=== PATIENT | male | born 1995 | race American Indian/Alaskan Native ===

== ENCOUNTER 2021-06-29 18:34 | Emergency (ER) | payer SELFPAY ==
[2021-06-29 18:42] VITALS: BP 121/66
[2021-06-29] MEDS ORDERED: IBUPROFEN 800 MG TAB PO ONE (21:22)
[2021-06-29] MEDS ORDERED: predniSONE 20 MG TAB PO ONE (21:22)
--- NOTE | 2021-06-29 21:36 | Emergency Department Report ---
ED Chest Pain HPI - General Chief Complaint: Chest Pain Stated Complaint: CHEST PAINS PUI?: No Time Seen by Provider: 06/29/21 21:21 Source: patient Mode of arrival: Ambulatory Limitations: No Limitations - History of Present Illness Initial Comments: Patient 26-year-old male who presents for anterior chest pain rated at 4/10 x3 days. Patient states symptoms are exacerbated by inspiration and movement. Patient described pain as pressure. Patient denies asthma bronchitis there is no seasonal allergies has been no cough no fevers no chills. Denies nausea or vomiting. There is no lightheadedness or dizziness. Patient works as armed security officer. Denies fall injury or trauma. Denies other medical history. Denies substance, smoking or EtOH. MD Complaint: chest pain Severity scale (0 -10): 2 - Related Data Previous Rx's Medication Instructions Recorded Last Taken Type Ibuprofen [Motrin 800 MG tab] 800 mg PO Q8HR PRN #30 tablet 06/29/21 Unknown Rx Allergies Allergy/AdvReac Type Severity Reaction Status Date / Time No Known Allergies Allergy Unverified 06/29/21 18:38 Heart Score - HEART Score History: Slightly suspicious EKG: Normal Age: < 45 Risk factors: No known risk factors Troponin: < normal limit HEART Score: 0 - EKG Read Time Time EKG Completed: 18:50 EKG Read Time: 18:56 ED Review of Systems ROS: Stated complaint: CHEST PAINS Other details as noted in HPI Constitutional: denies: chills, fever Eyes: as per HPI ENT: as per HPI Respiratory: denies: cough, shortness of breath, wheezing Cardiovascular: chest pain. denies: palpitations Endocrine: no symptoms reported Gastrointestinal: denies: abdominal pain, nausea, vomiting, diarrhea Genitourinary: denies: urgency, dysuria Musculoskeletal: denies: back pain, joint swelling, arthralgia Skin: denies: rash, lesions Neurological: headache. denies: weakness, numbness, paresthesias, confusion, vertigo Psychiatric: denies: anxiety, depression Hematological/Lymphatic: denies: easy bleeding, easy bruising ED Past Medical Hx - Medications Home Medications: Home Medications Medication Instructions Recorded Confirmed Last Taken Type Ibuprofen [Motrin 800 MG tab] 800 mg PO Q8HR PRN #30 tablet 06/29/21 Unknown Rx ED Physical Exam - General Limitations: No Limitations General appearance: alert, in no apparent distress - Head Head exam: Present: normocephalic, normal inspection - Eye Eye exam: Present: PERRL, EOMI Pupils: Present: normal accommodation - ENT ENT exam: Present: mucous membranes moist - Neck Neck exam: Present: normal inspection, full ROM. Absent: tenderness, lymphadenopathy, thyromegaly - Respiratory Respiratory exam: Present: normal lung sounds bilaterally, chest wall tenderness (Anterior chest wall). Absent: respiratory distress, wheezes, rales, rhonchi, stridor - Cardiovascular Cardiovascular Exam: Present: regular rate, normal rhythm, normal heart sounds. Absent: systolic murmur, diastolic murmur, rubs, gallop - GI/Abdominal GI/Abdominal exam: Present: soft, normal bowel sounds. Absent: distended, tenderness, guarding, rebound, rigid, bruit, hernia - Rectal Rectal exam: Present: deferred - Extremities Exam Extremities exam: Present: normal inspection, full ROM, normal capillary refill. Absent: tenderness, pedal edema, calf tenderness - Back Exam Back exam: Present: normal inspection, full ROM. Absent: CVA tenderness (R), CVA tenderness (L) - Neurological Exam Neurological exam: Present: alert, oriented X3, CN II-XII intact, normal gait - Expanded Neurological Exam Expanded Patient oriented to: Present: person, place, time Speech: Present: fluid speech Motor strength exam: RUE: 5, LUE: 5, RLE: 5, LLE: 5 Best Eye Response ([place]): (4) open spontaneously Best Motor Response ([place]): (6) obeys commands Best Verbal Response ([place]): (5) oriented [place] Total: 15 - Psychiatric Psychiatric exam: Present: normal affect, normal mood - Skin Skin exam: Present: warm, dry, intact, normal color. Absent: rash ED Course Vital Signs 06/29/21 18:40 Temperature 98.2 F Pulse Rate 68 Respiratory 18 Rate Blood Pressure 121/66 [Right] O2 Sat by Pulse 99 Oximetry DAKOTA score - Dakota Score Age > 65: (0) No Aspirin use within the Past 7 Days: (0) No 3 or more CAD Risk Factors: (0) No 2 or more Angina events in past 24 hrs: (0) No Known CAD with more than 50% Stenosis: (0) No Elevated Cardiac Markers: (0) No ST Deviation Greater than 0.5mm: (0) No DAKOTA Score: 0 ED Medical Decision Making - Lab Data Result diagrams: 06/29/21 21:27 06/29/21 21:27 Labs 06/29/21 06/29/21 21:27 21:27 WBC 7.0 RBC 5.12 H Hgb 16.2 H Hct 47.3 H MCV 92 MCH 32 MCHC 34 RDW 12.3 L Plt Count 262 Lymph % (Auto) 46.2 H [place] % (Auto) 5.2 Eos % (Auto) 3.2 Baso % (Auto) 0.5 Lymph # (Auto) 3.3 [place] # (Auto) 0.4 Eos # (Auto) 0.2 Baso # (Auto) 0.0 Seg Neutrophils % 44.9 Seg Neutrophils # 3.2 Sodium 135 L Potassium 3.8 Chloride 100.6 Carbon Dioxide 21 L Anion Gap 17 BUN 13 Creatinine 1.0 Estimated GFR > 60 BUN/Creatinine Ratio 13 Glucose 114 H Calcium 9.7 Total Bilirubin 0.70 AST 23 ALT 17 Alkaline Phosphatase 89 Troponin T < 0.010 Total Protein 7.4 Albumin 4.6 Albumin/Globulin Ratio 1.6 - EKG Data EKG shows normal: sinus rhythm, axis, intervals, QRS complexes Rate: normal - EKG Data When compared to previous EKG there are: previous EKG unavailable Interpretation: nonspecific ST-T wave lucía (NSR, left atrial enlargment, pericarditis, NSTEMI interp by ed attending) - Radiology Data Radiology results: report reviewed, image reviewed CHEST 2 VIEWS INDICATION / CLINICAL INFORMATION: chest pain. COMPARISON: None available. FINDINGS: SUPPORT DEVICES: None. HEART / MEDIASTINUM: No significant abnormality. LUNGS / PLEURA: No significant pulmonary or pleural abnormality. Nipple shadow of the right mid chest. No pneumothorax. ADDITIONAL FINDINGS: No significant additional findings. IMPRESSION: 1. No acute findings. Signer Name: Mahad Pop MD Signed: 06/29/2021 10:01 PM Workstation Name: [id number] Transcribed By: DT Dictated By: Octavio Pop MD Electronically Authenticated By: Octavio Pop MD Signed Date/Time: 06/29/212200 DD/ 00 TD/TT: - Medical Decision Making Pain is relieved with medications given in ED plan DC to home, NSAIDs as needed for pain, follow-up primary care doctor in 2 to 3 days. Chest x-ray is normal infiltrates no opacities, EKG normal sinus rhythm possible endocarditis, no ST elevated NE. Heart score 0 Interpreted by ED attending, heart sounds are normal, will DC to home with NSAIDs. Lung sounds are clear throughout there is no respiratory distress headache is resolved with medications given in the ED. There is no shortness of breath vital signs are normal. Patient will follow with primary care tomorrow. Patient verbalized agreement understanding with discharge plan. Patient DC'd home in stable condition at this time. Patient is currently alert oriented x3 patient appears well-hydrated well-nourished developmentally appropriate with no acute distress. Patient appears nontoxic. Critical care attestation.: If time is entered above; I have spent that time in minutes in the direct care of this critically ill patient, excluding procedure time. ED Disposition Clinical Impression: Nonspecific chest pain Disposition: 01 HOME / SELF CARE / HOMELESS Is pt being admited?: No Does the pt Need Aspirin: No Condition: Stable Instructions: Nonspecific Chest Pain, Adult, Chest Wall Pain Additional Instructions: Take medications as prescribed, follow-up with your doctor in 2 to 3 days. Return to emergency department should symptoms worsen. Prescriptions: Ibuprofen [Motrin 800 MG tab] 800 mg PO Q8HR PRN #30 tablet PRN Reason: pain Referrals: PETRA CHAUDHARY MD [Primary Care Provider] - 3-5 Days DANG METCALF MD [Staff Physician] - 2-3 Days Forms: Work/School Release Form(ED) Time of Disposition: 23:05
--- NOTE | 2021-06-29 22:06 | XRay Report ---
CHEST 2 VIEWS INDICATION / CLINICAL INFORMATION: chest pain. COMPARISON: None available. FINDINGS: SUPPORT DEVICES: None. HEART / MEDIASTINUM: No significant abnormality. LUNGS / PLEURA: No significant pulmonary or pleural abnormality. Nipple shadow of the right mid chest . No pneumothorax. ADDITIONAL FINDINGS: No significant additional findings. IMPRESSION: 1. No acute findings. Signer Name: Mahad Pop MD Signed: 06/29/2021 10:01 PM Workstation Name: [id number]
[2021-06-29 22:18] LABS: Alanine Aminotransferase 17 units/L (7-56); Albumin 4.6 g/dL (3.9-5); BUN/Creatinine Ratio 13; Blood Urea Nitrogen 13 mg/dL (9-20); Calcium 9.7 mg/dL (8.4-10.2); Hemolysis Index 15
[2021-06-29 22:27] LABS: Basophils % (Auto) 0.5 % (0.0-1.8); Eosinophils # (Auto) 0.2 K/mm3 (0.0-0.4); Eosinophils % (Auto) 3.2 % (0.0-4.3); Hematocrit 47.3 % (35.5-45.6); Hemoglobin 16.2 gm/dl (11.8-15.2); Lymphocytes # (Auto) 3.3 K/mm3 (1.2-5.4); Lymphocytes % (Auto) 46.2 % (13.4-35.0); Mean Corpuscular HGB Conc 34 % (32-34); Mean Corpuscular Volume 92 fl (84-94); Monocytes # (Auto) 0.4 K/mm3 (0.0-0.8); Monocytes % (Auto) 5.2 % (0.0-7.3); Platelet Count 262 K/mm3 (140-440); Red Blood Count 5.12 M/mm3 (3.65-5.03); Red Cell Distribution Width 12.3 % (13.2-15.2)
--- NOTE | 2021-07-03 12:00 | Electrocardiograph Report ---
[facility] Test Date: 2021-06-29 Test Time: 18:55:08 Pat Name: VICKI DEAN Department: Room: Gender: M Woods Laborer: KIET : 1995 Requested By: RAMA MCPHERSON Order Number: [id number] Reading MD: Ghulam Keller Measurements Intervals [place] Rate: 63 P: 67 VT: 157 QRS: 44 QRSD: 79 T: 59 QT: 365 QTc: 375 Interpretive Statements Sinus rhythm Left atrial enlargement ST elevation suggests acute pericarditis No previous ECG available for comparison Electronically Signed On 07-03-2021 12:00:15 EDT by Ghulam Keller
== END 2021-06-29 23:15 | disposition home or self-care (01) ==
LOC: ED 18:34
DX: R07.9 Chest pain, unspecified (principal)
CPT/HCPCS: 36415; 71046; 80053; 84484; 85025; 93005; 99283; 99284